=== PATIENT | male | born 1965 | race Hispanic/Latino ===

== ENCOUNTER 2019-01-05 12:02 | Emergency (ER) | payer BC ==
[~2019-01-05] VITALS: Ht 165.1 cm; Wt 90.7 kg
--- OUTSIDE RECORDS SUMMARY | 2019-01-05 12:03 | XMS REPORT ---
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 Allergies, Adverse Reactions, Alerts This patient has no known allergies or adverse reactions. Medications This patient has no known medications. Results Test Description Test Time Test Comments Text Results Atomic Results Result Comments CT BRAIN WO [place] [address] Patient Name: SLOANE ADAMS MR #: [id number] : 1965 Age/Sex: 51/M Req #: [id number] Adm Physician: Ordered by: FERCHO SINGER MD Report #: [id number] Location: ER Room/Bed: Procedure: [id number] CT/CT BRAIN WO Exam Date: Exam Time: REPORT STATUS: Signed Examination: CT BRAIN WITHOUT CONTRAST History:Blurry vision. Comparison studies:None Technique: Axial images were obtained from the skull base to the vertex. Coronal and sagittal images reconstructed from the axial data. Intravenous contrast: None Findings: Scalp: No abnormalities. Bones: No fractures, blastic or lytic lesions. Brain sulci: Appropriate for age. Ventricles: Normal in size and configuration. No hydrocephalus. Extra-axial space: No abnormalities. Parenchyma: No abnormal densities. No masses, hemorrhage, or acute or chronic cortical based vascular insults. Sellar/suprasellar region: No abnormalities. Craniocervical junction: Patent foramen magnum. No Chiari one malformation. Incidental findings: None. Impression: No intracranial abnormalities. Signed by: Dr. Clover Garcia M.D. on 2016 2:26 PM Dictated By: CLOVER COBURN MD 1426 Transcribed By: KEYA on 10/17/16 1426 COPY TO: FERCHO SINGRE MD
[2019-01-05] MEDS ORDERED: ALBUTEROL/IPRATROPIUM 3 ML NEB NEB ONE (14:00)
--- NOTE | 2019-01-05 14:55 | Diagnostic Imaging Report ---
EXAMINATION: CHEST 2 VIEWS INDICATION: Bronchitis, chest congestion COMPARISON: None FINDINGS: LINES/TUBES:None LUNGS:The lungs are well-inflated. Mild bibasilar patchy opacities. PLEURA:No pleural effusion or pneumothorax. MEDIASTINUM:The heart is mildly enlarged. BONES/SOFT TISSUES:No acute osseous injury. ABDOMEN:No free air under the diaphragm. IMPRESSION: Mild bibasilar subsegmental atelectasis. No focal pneumonia or pulmonary edema. Mild cardiomegaly. Signed by: Inessa Magana MD on 01/05/2019 2:51 PM
[2019-01-05] MEDS ORDERED: IPRATROPIUM BROMIDE 0.02% 2.5 ML NEB NEB STA (15:14)
[2019-01-05] MEDS ORDERED: ALBUTEROL SULF 0.083% NEB SOLN 3 ML NEB NEB STA (15:14)
[2019-01-05] MEDS ORDERED: ACETAMINOPHEN/CODEINE ELIX 120-12 MG/5 ML UDC PO ONE (15:15)
[2019-01-05] MEDS ORDERED: DEXAMETHASONE SOD PHOS 10 MG/1 ML VIAL IM ONE (15:15)
== END 2019-01-05 18:47 | disposition home or self-care (01) ==
LOC: ER 12:02
DX: R05 Cough (principal); J20.9 Acute bronchitis, unspecified; I10 Essential (primary) hypertension
CPT/HCPCS: 71046; 99284

== ENCOUNTER 2021-05-28 10:12 | Emergency (ER) | payer BC ==
[~2021-05-28] VITALS: Ht 165.1 cm; Wt 90.7 kg
[2021-05-28] MEDS ORDERED: ALBUTEROL/IPRATROPIUM 3 ML NEB NEB ONE (11:15)
[2021-05-28] MEDS ORDERED: ALBUTEROL/IPRATROPIUM 3 ML NEB ONE (11:38)
[2021-05-28] MEDS ORDERED: CEFTRIAXONE 1 GM VIAL IM ONE (12:45)
[2021-05-28] MEDS ORDERED: SODIUM CHLORIDE 0.9% 50ML 50 ML ONE (12:57)
[2021-05-28] MEDS ORDERED: CEFTRIAXONE 1 GM VIAL ONE (12:57)
[2021-05-28] MEDS ORDERED: SYMBICORT 16010.2 GM INH (12:59)
[2021-05-28] MEDS ORDERED: CEFDINIR300 MG PO (13:00)
[2021-05-28] MEDS ORDERED: GUAIFEN-CODEINE10 ML PO ×2 (13:02→13:12)
[2021-05-28] MEDS ORDERED: GUAIFEN-CODEINE5 ML PO (13:15)
[2021-05-28 13:38] VITALS: BP 103/58
== END 2021-05-28 13:39 | disposition home or self-care (01) ==
LOC: FSED 10:16
DX: R05.9 Cough, unspecified (principal); J20.9 Acute bronchitis, unspecified; E11.65 Type 2 diabetes mellitus with hyperglycemia; I10 Essential (primary) hypertension; I50.9 Heart failure, unspecified; E78.5 Hyperlipidemia, unspecified; I25.10 Atherosclerotic heart disease of native coronary artery without angina pectoris; I25.2 Old myocardial infarction; Z95.810 Presence of automatic (implantable) cardiac defibrillator; R94.31 Abnormal electrocardiogram [ECG] [EKG]
CPT/HCPCS: 71046; 80053; 82553; 83880; 84484; 85025; 93005; 99283; J0696

== ENCOUNTER 2021-07-31 17:35 | Observation (INO) | payer BC ==
[~2021-07-31] VITALS: Ht 165.1 cm; Wt 90.7 kg
[~2021-07-31 17:35] MED LIST: CEFDINIR300 MG PO; GUAIFEN-CODEINE10 ML PO; GUAIFEN-CODEINE5 ML PO; SYMBICORT 16010.2 GM INH
[2021-07-31] MEDS ORDERED: ASPIRIN 81 MG CHEW TAB PO ONE ×2 (18:15→20:45)
[2021-07-31 18:32] LABS: BASOPHILS % 0.4 % (0.0-1.0); EOSINOPHILS # (AUTO) 0.1 (0.0-0.4); EOSINOPHILS % 1.4 % (0.0-6.0); HEMATOCRIT 34.3 % (38.2-49.6); HEMOGLOBIN 11.4 g/dL (14.0-18.0); LYMPHOCYTES # (AUTO) 1.2 (1.0-3.2); LYMPHOCYTES % 16.3 % (18.0-39.1); MEAN CORPUSCULAR HGB CONC 33.2 g/dL (31-35); MEAN CORPUSCULAR VOLUME 96.3 fL (81-99); MONOCYTES % 13.2 % (4.4-11.3); NEUTROPHILS # (AUTO) 4.9 (2.1-6.9); NEUTROPHILS % 66.9 % (38.7-80.0); PLATELET COUNT 181 x10e3/uL (140-360); RED BLOOD COUNT 3.56 x10e6/uL (4.3-5.7); RED CELL DISTRIBUTION WIDTH 14.7 % (11.7-14.4)
[2021-07-31 18:44] LABS: ALBUMIN 3.7 g/dL (3.5-5.0); ALBUMIN/GLOBULIN RATIO 1.2 (0.8-2.0); ANION GAP 17.4 mmol/L (8-16); CALCIUM 9.2 mg/dL (8.4-10.2); CREATININE, SERUM 1.2 mg/dL (0.72-1.25); POTASSIUM 4.4 mmol/L (3.5-5.1)
[2021-07-31 18:51] LABS: CREATINE KINASE MB 4.6 ng/mL (0-5.0)
[2021-07-31] MEDS ORDERED: Morphine 4mg INJECTION 4 MG/ML INJ IV PRN (20:45)
[2021-07-31] MEDS ORDERED: ONDANSETRON HCL INJ 2MG/ML 2ML 2 MG/ML VIAL IV PRN (20:45)
[2021-07-31] MEDS ORDERED: ASPIRIN 81 MG CHEW TAB ONE (21:38)
[2021-08-01 04:03] LABS: PHENCYCLIDINE SCREEN,URINE NEGATIVE (NEGATIVE)
[2021-08-01 04:04] LABS: AMPHETAMINES SCREEN,URINE NEGATIVE (NEGATIVE); BENZODIAZEPINES SCREEN,URINE NEGATIVE (NEGATIVE)
[2021-08-01] MEDS ORDERED: ATORVASTATIN 40 MG TAB PO SCH ×2 (06:00→14:00)
[2021-08-01 06:48] LABS: BASOPHILS % 0.6 % (0.0-1.0); EOSINOPHILS # (AUTO) 0.1 (0.0-0.4); EOSINOPHILS % 2.7 % (0.0-6.0); HEMATOCRIT 34.5 % (38.2-49.6); HEMOGLOBIN 11.1 g/dL (14.0-18.0); LYMPHOCYTES # (AUTO) 0.8 (1.0-3.2); LYMPHOCYTES % 16.8 % (18.0-39.1); MEAN CORPUSCULAR HEMOGLOBIN 31.5 pg (28-32); MEAN CORPUSCULAR HGB CONC 32.2 g/dL (31-35); MONOCYTES # (AUTO) 0.6 (0.2-0.8); MONOCYTES % 13.1 % (4.4-11.3); NEUTROPHILS # (AUTO) 3.2 (2.1-6.9); PLATELET COUNT 167 x10e3/uL (140-360); RED BLOOD COUNT 3.52 x10e6/uL (4.3-5.7); RED CELL DISTRIBUTION WIDTH 14.9 % (11.7-14.4)
[2021-08-01 06:51] LABS: CREATINE KINASE MB 2.7 ng/mL (0-5.0)
[2021-08-01 06:56] LABS: ALBUMIN 3.4 g/dL (3.5-5.0); ALBUMIN/GLOBULIN RATIO 1.1 (0.8-2.0); ANION GAP 12.1 mmol/L (8-16); POTASSIUM 4.1 mmol/L (3.5-5.1)
[2021-08-01 09:10] VITALS: BP 146/95
[2021-08-01 09:30] VITALS: BP 146/95
[2021-08-01] MEDS ORDERED: FLUCONAZOL200 MG/100 IV (11:21)
[2021-08-01] MEDS ORDERED: BASAGLAR K100 UNIT/1 SQ (11:21)
[2021-08-01] MEDS ORDERED: ADVAIR 250-501 EACH INH (11:21)
[2021-08-01] MEDS ORDERED: PLAVIX75 MG PO (11:21)
[2021-08-01] MEDS ORDERED: ISOSORBIDE MONO30 MG PO (11:21)
[2021-08-01] MEDS ORDERED: SPIRONOLACTONE25 MG PO (11:21)
[2021-08-01] MEDS ORDERED: DIOVAN160 MG PO (11:21)
[2021-08-01 11:25] VITALS: BP 115/63
[2021-08-01] MEDS ORDERED: METOPROLOL SUCC50 MG PO (11:25)
[2021-08-01] MEDS ORDERED: FUROSEMIDE40 MG PO (11:25)
[2021-08-01] MEDS ORDERED: PIOGLITAZONE (11:25)
[2021-08-01] MEDS ORDERED: ATORVASTATIN CA20 MG PO (11:28)
[2021-08-01] MEDS ORDERED: ELIQUIS2.5 MG PO (11:28)
[2021-08-01] MEDS ORDERED: PROGLITAZONE HCL (11:32)
[2021-08-01] MEDS ORDERED: ACTOS15 MG PO (11:33)
[2021-08-01] MEDS ORDERED: FUROSEMIDE 40 MG TAB PO SCH (14:00)
[2021-08-01] MEDS ORDERED: ISOSORBIDE MONONITRATE 30 MG TAB CR PO SCH (14:00)
[2021-08-01] MEDS ORDERED: CLOPIDOGREL BISULFATE 75 MG TAB PO SCH (14:00)
[2021-08-01] MEDS ORDERED: APIXAB 2.5 MG TABLET PO SCH (14:00)
[2021-08-01] MEDS ORDERED: SPIRONOLACTONE 25 MG TAB PO SCH (14:30)
[2021-08-01] MEDS ORDERED: METOPROLOL SUCCINATE 50 MG TAB XL PO SCH (14:30)
[2021-08-01] MEDS ORDERED: VALSARTAN 160 MG TAB PO SCH (14:30)
[2021-08-01] MEDS ORDERED: DEXTROSE 50% SYRINGE 50 ML IV PRN (14:30)
[2021-08-01] MEDS ORDERED: PIOGLITAZONE HCL 15 MG TAB PO SCH (14:30)
[2021-08-01] MEDS ORDERED: INSULIN GLARGINE 100 UNITS/ML VIAL SQ SCH (15:00)
[2021-08-01 16:25] VITALS: BP 129/68
[2021-08-01] MEDS ORDERED: INSULIN LISPRO 100 UNIT/1 ML 3ML VIAL SQ SCH (16:30)
[2021-08-01 17:14] LABS: CREATINE KINASE 86 IU/L (30-200)
[2021-08-01] MEDS ORDERED: ONDANSETRON HCL 4 MG ORAL DISINTEGRATING TAB PO PRN (17:45)
[2021-08-01] MEDS ORDERED: ISOSORBIDE MONO60 MG PO (18:09)
[2021-08-01] MEDS ORDERED: SALMETEROL/FLUTICASONE 250/50 INH SCH (19:00)
== END 2021-08-01 18:41 | disposition home or self-care (01) ==
LOC: ER 17:45 → ERHOLD 20:52 → MED/SURG 08-01 09:15
PROVIDERS: ADMIT Internal Medicine; ATTEND Internal Medicine
DX: R07.2 Precordial pain (principal); I11.0 Hypertensive heart disease with heart failure; I50.22 Chronic systolic (congestive) heart failure; E11.9 Type 2 diabetes mellitus without complications; Z95.810 Presence of automatic (implantable) cardiac defibrillator; Z20.822 Contact with and (suspected) exposure to COVID-19; I25.10 Atherosclerotic heart disease of native coronary artery without angina pectoris; E78.5 Hyperlipidemia, unspecified
CPT/HCPCS: 36415 ×2; 71250; 80053 ×2; 80307; 82550 ×2; 82553 ×2; 82948; 83880; 84484 ×2; 85025 ×2; 93005; 93306; 99284; G0378 ×2; J1815; J2270; J2405; U0002